=== PATIENT | female | born 2000 | race Caucasian/White ===

== ENCOUNTER 2021-06-05 18:51 | Observation (INO) | payer OTHER, MEDICAID, SELFPAY ==
[2021-06-05] VITALS (14 sets, daily range): BP systolic 98–124; BP diastolic 54–76; PULSE 95–112; RESP 11–24; TEMP 38.1–39.6; O2SAT 97–100
--- NOTE | 2021-06-05 | DI.NM.S_ITS ---
PROCEDURE: NM HIDA NO EJECTION FRACTION RADIOPHARMACEUTICAL: 5.1 mCi Tc-99m mebrofenin IV. INDICATIONS: Rule out acute cholecystitis TECHNIQUE: Following intravenous administration of Tc-99m mebrofenin, sequential anterior abdominal images were obtained through at least 60 minutes. COMPARISON: None. FINDINGS: There is normal tracer uptake and excretion by the liver. There is normal visualization of intrahepatic ducts, common bile duct, and the gallbladder. There is normal tracer excretion into duodenum. IMPRESSION: Negative for acute cholecystitis. Dictated by: Alvaro Anaya M.D. on 06/06/2021 at 17:37 Approved by: Alvaro Anaya M.D. on 06/06/2021 at 17:38
--- NOTE | 2021-06-05 19:30 | DI.US.S_ITS ---
PROCEDURE: US ABDOMEN LIMITED INDICATIONS: RIGHT UPPER QUADRANT PAIN TECHNIQUE: Real-time focused scanning was performed of the abdomen, with image documentation. COMPARISON: None. FINDINGS: Liver is within normal limits. No focal mass. Gallbladder was within normal in appearance. There is a positive sonographic [place] sign. No gallbladder wall thickening. IMPRESSION: 1. Patient demonstrates pain overlying the gallbladder but there is no sonographic evidence of cholecystitis. Dictated by: Amber Castillo M.D. on 06/05/2021 at 19:57 Approved by: Amber Castillo M.D. on 06/05/2021 at 19:58
--- NOTE | 2021-06-05 19:30 | ED_ITS ---
HPI - Abdominal Pain General Chief Complaint: Abdominal Pain Stated Complaint: RIGHT SIDE LOWER PAIN FEVER Time Seen by Provider: 06/05/21 19:09 Source: patient Mode of arrival: Family Vehicle Limitations: no limitations History of Present Illness HPI narrative: Patient is a 21-year-old healthy female who presents with 4 days of right upper quadrant pain. She thinks is been off and on however more consistent over the last day or so. She has had body aches and fever and currently has 102 fever. She has been nauseous and decreased appetite. She has some mild right flank pain as well but is pain is mostly localized in her right upper quadrant. She has no painful or frequent urination. She is quite anxious and nervous. She has had a few episodes of diarrhea. Related Data Allergies Allergy/AdvReac Type Severity Reaction Status Date / Time lidocaine Allergy Intermediate Difficulty Verified 06/05/21 19:11 Breathing Review of Systems Review of Systems Narrative: GENERAL: + fever,+ body aches HEENT: Denies sinus pain, ear pain, sore throat, difficulty swallowing, neck pain RESPIRATORY: Denies dyspnea, cough, wheezing, hemoptysis, sputum. CARDIOVASCULAR: Denies chest pain, palpitations, orthopnea, edema GASTROINTESTINAL: See HPI : + mild right flank pain Denies dysuria, frequency, incontinence MUSCULOSKELETAL: Denies weakness, joint pain, or bony pain SKIN: No rash, no erythema, no pruritus NEUROLOGIC: Denies weakness, dizziness, headache, numbness, change in speech, confusion PSYCHIATRIC: No concerning psychosocial issues. 12 point review of systems is negative except for those stated above and HPI Patient History Social History household members: family and friend(s) Smoking Status: Never smoker Smoking Status: Never smoker alcohol intake frequency: holidays/special occasions only Substance Use Type: does not use Exam Initial Vital Signs Initial Vital Signs: Vital Signs Temperature 102.6 F H 06/05/21 19:04 Pulse Rate 110 H 06/05/21 19:04 Respiratory Rate 20 06/05/21 19:04 Blood Pressure 124/75 06/05/21 19:04 Pulse Oximetry 97 06/05/21 19:04 GENERAL: Alert 21-year-old female appears to not feel well HEENT: Head atraumatic,EOMI, pupils reactive, face symmetric, moist mucous membranes CARDIOVASCULAR: Regular rate and rhythm without murmurs, rubs or gallops. RESPIRATORY: Breath sounds equal bilaterally, no wheezes rales or rhonchi. ABDOMEN: Soft, positive [place]'s sign tender right upper quadrant minimal right lower quadrant pain : Very minimal CVA tenderness EXTREMITIES: Normal range of motion, no clubbing or edema. Neurovascularly intact NEUROLOGICAL: Alert and oriented x4.Normal gait and speech. SKIN: Warm, dry, no laceration, no petechiae, no rashes or lesions. 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) Stat Complete Blood Count AUTO DIFF Stat Comprehensive Metabolic Panel Stat Lactate (Lactic Acid) Stat Lipase Stat Test Serum,Qual Stat Procalcitonin Urgent 06/05/21 19:50 CT abdomen pelvis w con Stat 06/05/21 23:30 Education, smoking cessation ONGOING 06/05/21 23:35 Urinalysis and Microscopic Urgent 06/05/21 23:36 Consult to Physician Routine 06/05/21 23:38 Respiratory Panel (Film Array) Stat 06/05/21 23:40 Urine Microscopic Stat 06/06/21 05:00 Basic Metabolic Panel Routine Complete Blood Count AUTO DIFF DAILY 06/07/21 05:00 Complete Blood Count AUTO DIFF DAILY Acetaminophen (Acetaminophen 325 Mg Tablet) 650 mg PO Q6HR PRN PRN Reason: Fever/Mild Pain (1-3) Last Admin: 06/06/21 01:05 Dose: 650 mg Documented by: LAMAR Heparin Sodium (Porcine) (Heparin 5,000 Unit/Ml Vial) 5,000 unit SUBCUT BID CHAY Piperacillin Sod/Tazobactam (Sod 3.375 gm/ Sodium Chloride) 100 mls @ 25 mls/hr IV Q8H CHAY Ketorolac Tromethamine (Ketorolac 30 Mg/Ml Vial) 30 mg IV Q6HR PRN PRN Reason: Pain, Severe (7-10) Stop: 06/10/21 23:34 Last Admin: 06/06/21 01:38 Dose: 30 mg Documented by: LAMAR Naloxone HCl (Naloxone 0.4 Mg/Ml Vial) 0.2 mg IV Q2MIN PRN PRN Reason: Opiate Reversal Ondansetron HCl (Ondansetron 4 Mg Odt) 4 mg PO Q8HR PRN PRN Reason: Nausea And Vomiting Discontinued Medications Acetaminophen (Acetaminophen 325 Mg Tablet) 975 mg PO NOW ONE Stop: 06/05/21 22:31 Last Admin: 06/05/21 22:48 Dose: 975 mg Documented by: JILL Sodium Chloride (Normal Saline 0.9%) 1,000 mls @ 1,000 mls/hr IV BOLUS ONE Stop: 06/05/21 20:29 Last Infusion: 06/05/21 21:26 Dose: 0 mls/hr Documented by: Admin: 06/05/21 19:43 Dose: 1,000 mls/hr Documented by: JILL Piperacillin Sod/Tazobactam (Sod 4.5 gm/ Sodium Chloride) 100 mls @ 200 mls/hr IV NOW ONE Stop: 06/05/21 19:31 Last Infusion: 06/05/21 20:31 Dose: 0 mls/hr Documented by: Admin: 06/05/21 19:45 Dose: 200 mls/hr Documented by: JILL Piperacillin Sod/Tazobactam (Sod 4.5 gm/ Sodium Chloride) 100 mls @ 200 mls/hr IV NOW ONE Stop: 06/05/21 21:09 Last Admin: 06/05/21 23:25 Dose: Not Given Documented by: CASIMIRO Ketorolac Tromethamine (Ketorolac 30 Mg/Ml Vial) 30 mg IV NOW ONE Stop: 06/05/21 19:31 Last Admin: 06/05/21 19:43 Dose: 30 mg Documented by: JILL Ondansetron HCl (Ondansetron 4 Mg/2 Ml Inj) 4 mg IV NOW ONE Stop: 06/05/21 22:52 Last Admin: 06/05/21 23:00 Dose: 4 mg Documented by: CASIMIRO Vital Signs Vital signs: Vital Signs - 8 hr 06/05/21 20:30 06/05/21 21:00 06/05/21 21:40 Temperature Pulse Rate 102 H 95 H 96 H Respiratory Rate 18 17 Blood Pressure 104/57 L Pulse Oximetry 97 99 100 06/05/21 21:41 06/05/21 21:46 06/05/21 22:00 Temperature 102 F H Pulse Rate 97 H 101 H Respiratory Rate 22 15 Blood Pressure 103/65 108/76 Pulse Oximetry 99 100 06/05/21 22:06 06/05/21 22:30 06/05/21 23:00 Temperature 103.2 F H Pulse Rate 100 H 105 H Respiratory Rate 24 21 Blood Pressure 108/58 L 103/57 L Pulse Oximetry 100 99 06/05/21 23:26 Temperature 100.5 F H Pulse Rate Respiratory Rate Blood Pressure Pulse Oximetry MDM - Abdominal Pain Lab Data Result diagrams: 06/05/21 19:30 06/05/21 19:30 Labs: Lab Results 06/05/21 06/05/21 06/05/21 Range/Units 19:30 19:30 19:30 WBC 12.2 H (4.5-11.0) X10^3/uL RBC 4.51 (4.0-5.2) X10^6/uL Hgb 12.8 (12.0-16.0) g/dL Hct 39.4 (36-46) % MCV 87.3 (80-100) fL MCH 28.4 (26-34) PG MCHC 32.6 (30-36) % RDW 13.4 (11.6-14.8) % Plt Count 226 (150-400) X10^3/uL Neut % (Auto) 78.6 H (50-75) % Lymph % (Auto) 8.1 L (25-40) % [place] % (Auto) 12.0 (3-14) % Eos % (Auto) 1.1 L (2-4) % Baso % (Auto) 0.2 (0-2) % Neut # (Auto) 9600 H (9480-3356) /uL Lymph # (Auto) 1000 L (2203-0737) /uL [place] # (Auto) 1500 H (0-900) /uL Eos # (Auto) 100 (0-450) /uL Baso # (Auto) 0 (0-100) /uL Sodium 136 L (137-145) mmol/L Potassium 3.8 (3.4-5.1) mmol/L Chloride 106 (98-107) mmol/L Carbon Dioxide 25 (22-32) mmol/L BUN 8 (7-17) mg/dL Creatinine 0.64 (0.52-1.04) mg/dL Estimated GFR > 60.0 (>60) mL/min BUN/Creatinine Ratio 12.5 (6-22) Glucose 114 H (70-100) mg/dL Lactate (0.7-2.1) mmol/L Calcium 9.1 (8.4-10.2) mg/dL Total Bilirubin 0.7 (0.2-1.3) mg/dL AST 28 (14-36) IU/L ALT 19 (<35) IU/L Alkaline Phosphatase 83 (38-126) U/L Total Protein 7.7 (6.3-8.2) g/dL Albumin 4.3 (3.5-5.0) g/dL Globulin 3.4 (1.7-4.1) g/dL Albumin/Globulin Ratio 1.3 (1.0-2.8) Lipase 101 (23-300) U/L Procalcitonin (<0.5) ng/mL Serum , Qual Negative (Negative) SARS-CoV-2 (PCR) (Negative) 06/05/21 06/05/21 06/05/21 Range/Units 19:30 19:30 19:30 WBC (4.5-11.0) X10^3/uL RBC (4.0-5.2) X10^6/uL Hgb (12.0-16.0) g/dL Hct (36-46) % MCV (80-100) fL MCH (26-34) PG MCHC (30-36) % RDW (11.6-14.8) % Plt Count (150-400) X10^3/uL Neut % (Auto) (50-75) % Lymph % (Auto) (25-40) % [place] % (Auto) (3-14) % Eos % (Auto) (2-4) % Baso % (Auto) (0-2) % Neut # (Auto) (9973-9213) /uL Lymph # (Auto) (1340-1868) /uL [place] # (Auto) (0-900) /uL Eos # (Auto) (0-450) /uL Baso # (Auto) (0-100) /uL Sodium (137-145) mmol/L Potassium (3.4-5.1) mmol/L Chloride (98-107) mmol/L Carbon Dioxide (22-32) mmol/L BUN (7-17) mg/dL Creatinine (0.52-1.04) mg/dL Estimated GFR (>60) mL/min BUN/Creatinine Ratio (6-22) Glucose (70-100) mg/dL Lactate 1.2 (0.7-2.1) mmol/L Calcium (8.4-10.2) mg/dL Total Bilirubin (0.2-1.3) mg/dL AST (14-36) IU/L ALT (<35) IU/L Alkaline Phosphatase (38-126) U/L Total Protein (6.3-8.2) g/dL Albumin (3.5-5.0) g/dL Globulin (1.7-4.1) g/dL Albumin/Globulin Ratio (1.0-2.8) Lipase (23-300) U/L Procalcitonin 2.48 H (<0.5) ng/mL Serum , Qual (Negative) SARS-CoV-2 (PCR) Negative (Negative) Point of care testing: Point of Care Testing Test Results Negative Urine Dip Bedside Urine Glucose Negative Bedside Urine Bilirubin - Negative Bedside Urine Ketone - Negative Urine Specific [place] 1.015 Bedside Urine Occult Blood - Negative Bedside Urine pH 6 Bedside Urine Protein - Negative Bedside Urine Urobilinogen - Negative Bedside Urine Nitrite - Negative Bedside Urine Leukocytes - Negative Esterase Imaging Data US - abdomen: Radiologist's Impression: PROCEDURE: US ABDOMEN LIMITED ? INDICATIONS:? RIGHT UPPER QUADRANT PAIN ? TECHNIQUE:? Real-time focused scanning was performed of the abdomen, with image documentation.? ? COMPARISON:? None. ? FINDINGS:? Liver is within normal limits.? No focal mass.? Gallbladder was within normal in appearance.? There is a positive sonographic [place] sign.? No gallbladder wall thickening. ? IMPRESSION:? 1. Patient demonstrates pain overlying the gallbladder but there is no sonographic evidence of cholecystitis.? ? ? Dictated by: Amber Castillo M.D. on 06/05/2021 at 19:57 ? ? CT scan - abdomen/pelvis: Radiologist's Impression: PROCEDURE:? CT ABDOMEN PELVIS W CON ? INDICATIONS:? rlq pain ? TECHNIQUE:? After the administration of intravenous contrast, axial sections acquired from the lung bases to the pubic symphysis.? Coronal and sagittal reformats were performed.? For radiation dose reduction, the following was used:? automated exposure control, adjustment of mA and/or kV according to patient size.? ? COMPARISON:? None. ? FINDINGS:? Image quality:? Excellent.? ? Lung bases:? Unremarkable. Heart:? No significant findings. ? ABDOMEN: Liver:? Unremarkable.? ? Gallbladder:? Contracted? ? Biliary ducts:? Unremarkable.? ? Pancreas:? Unremarkable.? ? Spleen:? Unremarkable.? ? Adrenal Glands:? Unremarkable.? ? Kidneys and Ureters:? Unremarkable.? ? ? Stomach and Bowel:? Stomach and small bowel are grossly unremarkable.? Normal appendix.? Colon is within normal limits. Peritoneum:? Small amount of free fluid within the pelvis, within physiological limits in a menstruating female.? No free air.? ? Ventral Wall: ? No hernias.? Abdominal Nodes:? No retroperitoneal or mesenteric adenopathy by size criteria.? Vessels:? Aorta and inferior vena cava are normal in size.? ? PELVIS: Pelvic Organs:? Unremarkable.? ? Bladder:? Small amount of gas within the urinary bladder. Pelvic Nodes: No enlarged lymph nodes.? Miscellaneous: No hernias are seen. ? ? ? Bones:? Unremarkable.? IMPRESSION:? 1. Small amount of physiologic free fluid within the pelvis. 2. Normal appendix. 3. Small amount of gas within the urinary bladder, suggestive recent catheterization.? If there is no history of recent catheterization, consider enterovesical fistula.? ? ? Dictated by: Amber Castillo M.D. on 06/05/2021 at 20:48 MDM Narrative Medical decision making narrative: The patient is found to be febrile tachycardic with tenderness in right upper quadrant. Mild leukocytosis of 12 and a normal lactic acid. Ultrasound and CT show a normal gallbladder. CT does suggest possible in tear of vesical fistula and gas in her bladder. She has not been catheterized and has no suprapubic pain or pelvic pain Has no real identifiable source of her fever. sHe denies any vaginal discharge, she is not sexually active. 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 I have benitez ho and spoken with Dr. Menjivar. He is in ED to see and evaluate patient. Recommends admitting to hospitalist for further monitoring. May need HIDA scan for right upper quadrant. Fever initially 102 but increased to 103.2. She was tachycardic. Blood pressure did decrease from 124/75 to systolic of 98. Then came back up into low 100s. She is given fluids but map remains above 65 and sepsis fluids were not ordered. She is given a dose of antibiotics. Unclear what her source is. Blood cultures are pending. Eric NAJERA updated on patient's symptoms test results and accepts patient. Discharge Plan Departure Patient Disposition: Admitted As Inpatient Clinical Impression: Sepsis Qualifiers: Sepsis type: sepsis due to unspecified organism Sepsis acute organ dysfunction status: without acute organ dysfunction Qualified Code(s): A41.9 - Sepsis, unspecified organism Admit Date/Time: 06/06/21 00:03 Admit Provider: Marilu Reyes
[2021-06-05] MEDS: KETOROLAC 30 MG/ML VIAL IV (19:43)
[2021-06-05] MEDS: SODIUM CHLORIDE 0.9% 1,000 ML 1000 ML IV (19:43)
[2021-06-05] MEDS: PIPERACILLIN/TAZO 4.5 GM in SODIUM CHLORIDE 0.9% 100 ML 200 ML IV (19:45)
--- NOTE | 2021-06-05 19:50 | DI.CT.S_ITS ---
PROCEDURE: CT ABDOMEN PELVIS W CON INDICATIONS: rlq pain TECHNIQUE: After the administration of intravenous contrast, axial sections acquired from the lung bases to the pubic symphysis. Coronal and sagittal reformats were performed. For radiation dose reduction, the following was used: automated exposure control, adjustment of mA and/or kV according to patient size. COMPARISON: None. FINDINGS: Image quality: Excellent. Lung bases: Unremarkable. Heart: No significant findings. ABDOMEN: Liver: Unremarkable. Gallbladder: Contracted Biliary ducts: Unremarkable. Pancreas: Unremarkable. Spleen: Unremarkable. Adrenal Glands: Unremarkable. Kidneys and Ureters: Unremarkable. Stomach and Bowel: Stomach and small bowel are grossly unremarkable. Normal appendix. Colon is within normal limits. Peritoneum: Small amount of free fluid within the pelvis, within physiological limits in a menstruating female. No free air. Ventral Wall: No hernias. Abdominal Nodes: No retroperitoneal or mesenteric adenopathy by size criteria. Vessels: Aorta and inferior vena cava are normal in size. PELVIS: Pelvic Organs: Unremarkable. Bladder: Small amount of gas within the urinary bladder. Pelvic Nodes: No enlarged lymph nodes. Miscellaneous: No hernias are seen. Bones: Unremarkable. IMPRESSION: 1. Small amount of physiologic free fluid within the pelvis. 2. Normal appendix. 3. Small amount of gas within the urinary bladder, suggestive recent catheterization. If there is no history of recent catheterization, consider enterovesical fistula. Dictated by: Amber Castillo M.D. on 06/05/2021 at 20:48 Approved by: Amber Castillo M.D. on 06/05/2021 at 20:50
[2021-06-05 20:21] LABS: Add Manual Diff / Slide Review NO; Basophils Absolute Auto 0 /uL (0-100); Basophils Percent Auto 0.2 % (0-2); Eosinophils Absolute Auto 100 /uL (0-450); Eosinophils Percent Auto 1.1 % (2-4); Hematocrit 39.4 % (36-46); Hemoglobin 12.8 g/dL (12.0-16.0); Lymphocytes Absolute Auto 1000 /uL (1100-4500); Lymphocytes Percent Auto 8.1 % (25-40); Mean Corpuscular HGB Conc 32.6 % (30-36); Mean Corpuscular Hemoglobin 28.4 PG (26-34); Mean Corpuscular Volume 87.3 fL (80-100); Monocytes Absolute Auto 1500 /uL (0-900); Neutrophils Absolute Auto 9600 /uL (1500-7000); Neutrophils Percent Auto 78.6 % (50-75); Platelet Count 226 X10^3/uL (150-400); Red Blood Cell Count 4.51 X10^6/uL (4.0-5.2); Red Cell Distribution Width 13.4 % (11.6-14.8); White Blood Cell Count 12.2 X10^3/uL (4.5-11.0)
[2021-06-05 20:29] LABS: Alanine Aminotransferase 19 IU/L (<35); Albumin 4.3 g/dL (3.5-5.0); Albumin Globulin Ratio 1.3 (1.0-2.8); Alkaline Phosphatase 83 U/L (38-126); Aspartate Aminotransferase 28 IU/L (14-36); BUN Creatinine Ratio 12.5 (6-22); Bilirubin Total 0.7 mg/dL (0.2-1.3); Blood Urea Nitrogen 8 mg/dL (7-17); Calcium 9.1 mg/dL (8.4-10.2); Carbon Dioxide 25 mmol/L (22-32); Chloride 106 mmol/L (98-107); Estimated Glomerular Filt Rate > 60.0 mL/min (>60); Globulin 3.4 g/dL (1.7-4.1); Glucose 114 mg/dL (70-100); HEMOLYSIS < 15 (0-50); Lipase 101 U/L (23-300); Potassium 3.8 mmol/L (3.4-5.1); Sodium 136 mmol/L (137-145); Total Protein 7.7 g/dL (6.3-8.2)
[2021-06-05 21:03] LABS: Pregnancy Test Serum,Qual Negative (Negative)
[2021-06-05 22:37] LABS: COVID19 - ADMIT (NP swab/PCR) Negative (Negative)
[2021-06-05 22:44] LABS: Lactate (Lactic Acid) 1.2 mmol/L (0.7-2.1)
[2021-06-05] MEDS: ACETAMINOPHEN 325 MG TABLET 975 MG PO (22:48)
[2021-06-05] MEDS: ONDANSETRON 4 MG/2 ML INJ IV (23:00)
--- NOTE | 2021-06-05 23:28 | P.CONS_ITS ---
History of Present Illness Consult details Date Patient Seen: 06/05/21 Time Patient Seen: 23:28 Chief complaint: RIGHT SIDE LOWER PAIN FEVER Narrative: 21 y.o woman presents to the ER with complaint of right sided abdominal pain and nausea x several days. Today her pain became worse primarily in the right upper quadrant and associated fever. No previous similar episodes. Workup from the emergency department was significant for temp 103, HR 115, WBC 12. RUQ ultrasound demonstrates normal gallbladder without stones. CT A/P- small amount of free fluid, normal appendix and small amount of gas within the bladder. She is having bowel movements, recent diarrhea today no blood per rectum or hematemsis. Meds Home Medications and Allergies Allergies Allergy/AdvReac Type Severity Reaction Status Date / Time lidocaine Allergy Intermediate Difficulty Verified 06/05/21 19:11 Breathing Review of Systems Review of Systems ROS: Yes All systems reviewed with the patient and are negative except as otherwise documented Exam Vital Signs (past 8 hours): - 06/05/21 19:04 06/05/21 19:07 06/05/21 19:33 Temperature 102.6 F H 102.6 F H Pulse Rate 110 H 112 H 112 H Respiratory Rate 20 15 11 L Blood Pressure 124/75 124/75 Pulse Oximetry 97 100 100 06/05/21 20:00 06/05/21 20:30 06/05/21 21:00 Temperature Pulse Rate 100 H 102 H 95 H Respiratory Rate 21 18 17 Blood Pressure 98/54 L 104/57 L Pulse Oximetry 97 97 99 06/05/21 21:40 06/05/21 21:41 06/05/21 21:46 Temperature 102 F H Pulse Rate 96 H 97 H Respiratory Rate 22 Blood Pressure 103/65 Pulse Oximetry 100 99 06/05/21 22:00 06/05/21 22:06 06/05/21 22:30 Temperature 103.2 F H Pulse Rate 101 H 100 H Respiratory Rate 15 24 Blood Pressure 108/76 108/58 L Pulse Oximetry 100 100 06/05/21 23:00 06/05/21 23:26 Temperature 100.5 F H Pulse Rate 105 H Respiratory Rate 21 Blood Pressure 103/57 L Pulse Oximetry 99 Oxygen Delivery Method Room Air Narrative Exam Narrative: Constitutional-She is oriented to person, place and time. No apparent distress Cardiovascular- regular rate, no peripheral edema Pulmonary-unlabored respiratory effort, no audible wheezing Abdominal-tender no peritonitis right upper quadrant nondistended Musculoskeletal-no cyanosis or clubbing Neurological-nonfocal, normal strength throughout, normal gait. Skin-warm and dry Objective Labs Result Diagrams: 06/05/21 19:30 06/05/21 19:30 Labs: Laboratory Results - last 24 hr 06/05/21 06/05/21 06/05/21 19:30 19:30 19:30 WBC 12.2 H RBC 4.51 Hgb 12.8 Hct 39.4 MCV 87.3 MCH 28.4 MCHC 32.6 RDW 13.4 Plt Count 226 Neut % (Auto) 78.6 H Lymph % (Auto) 8.1 L [place] % (Auto) 12.0 Eos % (Auto) 1.1 L Baso % (Auto) 0.2 Neut # (Auto) 9600 H Lymph # (Auto) 1000 L [place] # (Auto) 1500 H Eos # (Auto) 100 Baso # (Auto) 0 Sodium 136 L Potassium 3.8 Chloride 106 Carbon Dioxide 25 BUN 8 Creatinine 0.64 Estimated GFR > 60.0 BUN/Creatinine Ratio 12.5 Glucose 114 H Lactate Calcium 9.1 Total Bilirubin 0.7 AST 28 ALT 19 Alkaline Phosphatase 83 Total Protein 7.7 Albumin 4.3 Globulin 3.4 Albumin/Globulin Ratio 1.3 Lipase 101 Serum , Qual Negative SARS-CoV-2 (PCR) 06/05/21 06/05/21 19:30 19:30 WBC RBC Hgb Hct MCV MCH MCHC RDW Plt Count Neut % (Auto) Lymph % (Auto) [place] % (Auto) Eos % (Auto) Baso % (Auto) Neut # (Auto) Lymph # (Auto) [place] # (Auto) Eos # (Auto) Baso # (Auto) Sodium Potassium Chloride Carbon Dioxide BUN Creatinine Estimated GFR BUN/Creatinine Ratio Glucose Lactate 1.2 Calcium Total Bilirubin AST ALT Alkaline Phosphatase Total Protein Albumin Globulin Albumin/Globulin Ratio Lipase Serum , Qual SARS-CoV-2 (PCR) Negative [facility] Tobacco & Substance Use Smoking Status: Never smoker Assessment & Plan Assessment & Plan narrative: 21-year-old female admitted to the hospital for acute abdominal pain and fever of unknown etiology. Personally reviewed her ultrasound of the abdomen as well as the CT abdomen pelvis. Overall the imaging is unremarkable. No free air, small amount of physiological fluid, no bowel obstruction, masses hernia.. Gallbladder is unremarkable on both ultrasound and CT, there are no gallstones no wall thickening no pericholecystic fluid. Recommend a HIDA scan for further evaluation of her right upper quadrant pain. In regards to the diarrhea would recommend stool studies for further evaluation. No acute surgical process identified at this time will follow. -Ok for clear liquid diet -Consider antibiotics for presumed infection -HIDA scan -IVF Time Spent With Patient Critical Care time: I spent a total of [] minutes of critical care time on this patient's care today; this time is exclusive of procedural time.
[2021-06-06] VITALS (21 sets, daily range): BP systolic 90–115; BP diastolic 49–71; PULSE 62–105; RESP 16–18; TEMP 36.2–39.1; O2SAT 95–100; BMI 32.4
[2021-06-06 00:37] LABS: Procalcitonin 2.48 ng/mL (<0.5)
[2021-06-06] MEDS: ACETAMINOPHEN 325 MG TABLET 650 MG PO ×3 (01:05→17:40)
[2021-06-06] MEDS: KETOROLAC 30 MG/ML VIAL IV ×4 (01:38→22:38)
--- NOTE | 2021-06-06 03:53 | PM.HP.1 ---
History of Present Illness History of Present Illness Date Patient Seen: 06/05/21 Time Patient Seen: 23:42 Chief complaint: RIGHT SIDE LOWER PAIN FEVER Narrative: Patient is a 21-year-old healthy female who presents with 4 days of right upper quadrant pain, nausea, fever, body aches, diaphoresis, and chills. She thinks is been off and on however more consistent over the last day or so.? She presented with fever of 103, and MADDEN.? She has been nauseous and decreased appetite.? She has some mild right flank pain as well but is pain is mostly localized in her right upper quadrant, and mildly in to lower right.?She is quite anxious and nervous. Patient states the pain has been fairly consistent for the last day or so, does not change in intensity, or with movement or eating. Patient reports that she traveled to [place] where her home is last weekend but has not been exposed to any ill persons. Patient states that approximately 1 year ago she had a lower GI bleed that was found on colonoscopy and had negative upper GI. Patient does have a history of asthma, but has not required medication wall staying in [place]. Patient denies chest pain, shortness of breath, changes in vision, weakness, numbness, tingling, urinary symptoms, bowel changes, hematemesis, hematuria, melena, recent illness injury or trauma. Patient has been vaccinated for COVID-19. Takes no medications. Upon initial exam patient's fever has increased again to 102, she is severely diaphoretic and continues to be quite tender to the upper right and slightly milder lower right abdominal pain, mild right CVA tenderness, negative suprapubic. Patient's initial vitals admit temp 102?, BP 103/57, HR slightly tachycardic 5, RR 21, O2 saturation 99% room air. Patient does have an elevated WBC of 12.2 with neutrophils 9600 chemistry liver panel are all unremarkable, lipase WNL, hCG WNL. Procalcitonin ordered. Abdominal CT demonstrated small amount of physiologic free fluid within the pelvis, with a small amount of gas within the urinary bladder, suggestive recent catheterization.? Ifthere is no history of recent catheterization, consider enterovesical fistula.? Patient's abdominal ultrasound demonstrated no signs of acute cholecystitis. Patient admitted for right upper quadrant abdominal pain, fever with leukocytosis of unknown etiology. Dr. Menjivar kindly consulted on patient's case in ED. Patient History Medical History (Updated 06/06/21 @ 04:39 by JACLYN Toth) Asthma History of lower GI bleeding Surgical History (Updated 06/06/21 @ 04:39 by JACLYN Toth) History of colonoscopy History of esophagogastroduodenoscopy (EGD) Family & Social History Family History Mother Dee Dee's thyroiditis Father Hypertension Social History: household members family,friend(s) Prior Living Arrangements House Safety & Behavioral: Feels Safe in Current Yes Environment Been Physically Hurt or No Threatened By a Person Tobacco & Substance use: Smoking Status Never smoker alcohol intake frequency holiday/special occasion Substance Use Type does not use Meds Home Medications and Allergies Allergies Allergy/AdvReac Type Severity Reaction Status Date / Time lidocaine Allergy Intermediate Difficulty Verified 06/05/21 19:11 Breathing Review of Systems Review of Systems Narrative: All 12 point systems reviewed with the patient and are negative except otherwise documented. Exam Vital Signs (past 8 hours): - 06/05/21 20:00 06/05/21 20:30 06/05/21 21:00 Temperature Pulse Rate 100 H 102 H 95 H Respiratory Rate 21 18 17 Blood Pressure 98/54 L 104/57 L Pulse Oximetry 97 97 99 06/05/21 21:40 06/05/21 21:41 06/05/21 21:46 Temperature 102 F H Pulse Rate 96 H 97 H Respiratory Rate 22 Blood Pressure 103/65 Pulse Oximetry 100 99 06/05/21 22:00 06/05/21 22:06 06/05/21 22:30 Temperature 103.2 F H Pulse Rate 101 H 100 H Respiratory Rate 15 24 Blood Pressure 108/76 108/58 L Pulse Oximetry 100 100 06/05/21 23:00 06/05/21 23:26 06/06/21 00:21 Temperature 100.5 F H 102.4 F H Pulse Rate 105 H 103 H Respiratory Rate 21 18 Blood Pressure 103/57 L 101/49 L Pulse Oximetry 99 96 06/06/21 00:33 06/06/21 01:05 06/06/21 01:06 Temperature 102.4 F H 102.4 F H Pulse Rate Respiratory Rate Blood Pressure Pulse Oximetry 96 06/06/21 01:34 06/06/21 01:35 06/06/21 01:59 Temperature 100.4 F H 100.4 F H 99.5 F Pulse Rate Respiratory Rate Blood Pressure Pulse Oximetry Oxygen Delivery Method Room Air Narrative Exam Narrative: General: Patient is a well-developed, well-nourished obese female, moderately ill appearing, in mild distress at this time. HEENT: Normocephalic, atraumatic, extraocular muscles intact, oral pharynx is clear and mucous membranes are moist. Neck is supple and symmetric, trachea is midline, no adenopathy, no thyroid enlargement, nontender, no masses palpated. Negative for JVD Chest: Normal AP diameter and contour without kyphoscoliosis, no nasal flaring, retractions, or tachypneic labored Lungs: Auscultation of all lung drake are clear without adventitious sounds, wheezes, rhonchi, or rales. Cardio: S1 & S2 with regular rate and rhythm without murmur, rubs, or gallops, no carotid bruit, no cardiac pulsations present. Abdomen: Soft upper right moderate pain, lower right slightly less pain, right mild CVA discomfort, negative for obvious organomegaly, or masses. Bowel sounds are present in all 4 quadrants, positive mild right guarding, no CVA tenderness. Musculoskeletal: Muscle strength and tone are equal within normal limits, no deformity, crepitus, effusions, cyanosis, clubbing or edema present. Full range of motion intact radial and pedal pulses are normal. Skin: Hot grossly diaphoretic and intact without rashes, ulcerations or petechiae. Neuro: Alert and orientated x3, strength is +5/5 in all extremities, sensation to touch intact, no gross deficits noted of cranial nerves. Psych: Patient has a well-kept appearance, appropriate affect, mental status attitude thought context and judgment are appropriate for age. Objective Labs Result Diagrams: 06/05/21 19:30 06/05/21 19:30 Labs: Laboratory Results - last 24 hr 06/05/21 06/05/21 06/05/21 19:30 19:30 19:30 WBC 12.2 H RBC 4.51 Hgb 12.8 Hct 39.4 MCV 87.3 MCH 28.4 MCHC 32.6 RDW 13.4 Plt Count 226 Neut % (Auto) 78.6 H Lymph % (Auto) 8.1 L [place] % (Auto) 12.0 Eos % (Auto) 1.1 L Baso % (Auto) 0.2 Neut # (Auto) 9600 H Lymph # (Auto) 1000 L School[place] # (Auto) 1500 H Eos # (Auto) 100 Baso # (Auto) 0 Sodium 136 L Potassium 3.8 Chloride 106 Carbon Dioxide 25 BUN 8 Creatinine 0.64 Estimated GFR > 60.0 BUN/Creatinine Ratio 12.5 Glucose 114 H Lactate Calcium 9.1 Total Bilirubin 0.7 AST 28 ALT 19 Alkaline Phosphatase 83 Total Protein 7.7 Albumin 4.3 Globulin 3.4 Albumin/Globulin Ratio 1.3 Lipase 101 Procalcitonin Serum , Qual Negative SARS-CoV-2 (PCR) 06/05/21 06/05/21 06/05/21 19:30 19:30 19:30 WBC RBC Hgb Hct MCV MCH MCHC RDW Plt Count Neut % (Auto) Lymph % (Auto) Schoolcraft % (Auto) Eos % (Auto) Baso % (Auto) Neut # (Auto) Lymph # (Auto) Schoolcraft # (Auto) Eos # (Auto) Baso # (Auto) Sodium Potassium Chloride Carbon Dioxide BUN Creatinine Estimated GFR BUN/Creatinine Ratio Glucose Lactate 1.2 Calcium Total Bilirubin AST ALT Alkaline Phosphatase Total Protein Albumin Globulin Albumin/Globulin Ratio Lipase Procalcitonin 2.48 H Serum , Qual SARS-CoV-2 (PCR) Negative Assessment & Plan Assessment & Plan narrative: Patient is a 21-year-old female Yaritza Greene (correct spelling per pt) with a history of lower GI bleed approximately 1 year ago, and asthma. Who presented to the ED this evening with moderate right upper quadrant pain, fever, and leukocytosis of unknown etiology. Dr. Menjivar kindly consulted in the ED and ordered HIDA scan for tomorrow. 1. Right upper quadrant pain, fever with leukocytosis of unknown etiology, acute, present on admission -presenting temp 103, BP 103/57, mildly tachycardic HR 105, 21, O2 saturation 98% on room air, WBC 12.2, neutrophils 9600, procalcitonin 2.48 -LR at 100 cc/hour -Zosyn 3.375 q.8 hours -HIDA Scan Tomorrow -stool cultures, Hemoccult, O&P, H pylori, amylase -ED Consult per Dr. Menjivar :Personally reviewed her ultrasound of the abdomen as well as the CT abdomen pelvis. Overall the imaging is unremarkable. No free air, small amount of physiological fluid, no bowel obstruction, masses hernia.. ? Gallbladder is unremarkable on both ultrasound and CT,? there are no gallstones no wall thickening no pericholecystic fluid.? Recommend a HIDA scan for further evaluation of her right upper quadrant pain.? In regards to the diarrhea would recommend stool studies for further evaluation.? No acute surgical process identified at this time will follow. -Ok for clear liquid diet -Consider antibiotics for presumed infection -HIDA scan -IVF 2. Obesity as evidence by BMI of 32.5, acute on chronic, present on admission -consideration will be given for dietary counseling Code status: Full code Surrogate decision maker: Father Tian Greene COVID PCR: Negative COVID vaccination: Moderna October 2020 DVT/VTE prophylaxis: Heparin 5000 units b.i.d. Disposition: Estimated length of stay less than 2 midnights. I have utilized all available immediate resources to obtain, update, or review the patient's current medications. I confirmed that the patient's advanced care plan is present, Code status is documented and/or surrogate decision maker is listed in the patient's medical record. Time Spent With Patient Critical Care time: I spent a total of [] minutes of critical care time on this patient's care today; this time is exclusive of procedural time.
[2021-06-06] MEDS: PIPERACILLIN/TAZO 3.375 GM in SODIUM CHLORIDE 0.9% 100 ML 25 ML IV ×3 (04:27→20:34)
--- NOTE | 2021-06-06 07:15 | DI.RAD.S_ITS ---
PROCEDURE: XR CHEST 2V INDICATIONS: fever TECHNIQUE: 2 views of the chest were acquired. COMPARISON: None. FINDINGS: Surgical changes and devices: None. Lungs and pleura: Lungs are clear. No pleural effusions or pneumothorax. Mediastinum: Mediastinal contours are normal. Heart size is normal. Bones and chest wall: No suspicious bony abnormalities. Soft tissues appear unremarkable. IMPRESSION: No acute cardiopulmonary abnormality. Dictated by: Ousmane Babb M.D. on 06/06/2021 at 8:15 Approved by: Ousmane Babb M.D. on 06/06/2021 at 8:17
[2021-06-06 07:40] LABS: Appearance Urine UA CLEAR; Bilirubin Urine UA NEGATIVE (NEGATIVE); Color Urine UA YELLOW; Glucose Urine UA NEGATIVE (Negative); Ketones Urine UA NEGATIVE (NEGATIVE); Leukocyte Esterase Urine UA NEGATIVE (NEGATIVE); Nitrite Urine UA NEGATIVE (Negative); Occult Blood Urine UA TRACE-LYSED (Negative); Protein Urine UA NEGATIVE (Negative); Specific Gravity Urine UA <=1.005 (1.000-1.035); Urobilinogen Urine UA 0.2 E.U./dL (0.2)
[2021-06-06 08:02] LABS: pH Urine UA 6.5 (4.5-8.0)
[2021-06-06 08:05] LABS: Bacteria Urine Few (2-10); Culture Indicated Urine Specimen Cultured; RBC Urine 1-5/HPF (0-5/HPF); Squamous Epithelial Cell Urine 1-5 /HPF (0-5/HPF); WBC Urine 5-10/HPF (0-5/HPF)
[2021-06-06 08:47] LABS: Add Manual Diff / Slide Review NO; Basophils Absolute Auto 0 /uL (0-100); Basophils Percent Auto 0.1 % (0-2); Eosinophils Absolute Auto 100 /uL (0-450); Eosinophils Percent Auto 0.7 % (2-4); Hematocrit 36.7 % (36-46); Lymphocytes Absolute Auto 1400 /uL (1100-4500); Lymphocytes Percent Auto 11.8 % (25-40); Mean Corpuscular HGB Conc 32.6 % (30-36); Mean Corpuscular Hemoglobin 28.3 PG (26-34); Mean Corpuscular Volume 86.7 fL (80-100); Monocytes Absolute Auto 1300 /uL (0-900); Monocytes Percent Auto 10.9 % (3-14); Neutrophils Absolute Auto 9200 /uL (1500-7000); Neutrophils Percent Auto 76.5 % (50-75); Platelet Count 184 X10^3/uL (150-400); Red Blood Cell Count 4.24 X10^6/uL (4.0-5.2); Red Cell Distribution Width 13.9 % (11.6-14.8)
[2021-06-06] MEDS: HEPARIN 5,000 UNIT/ML VIAL 5000 UNIT SUBCUT ×2 (08:48→22:50)
[2021-06-06] MEDS: SODIUM CHLORIDE 0.9% 1,000 ML 100 ML IV (08:48)
[2021-06-06 08:53] LABS: BUN Creatinine Ratio 15.5 (6-22); Blood Urea Nitrogen 9 mg/dL (7-17); Calcium 8.4 mg/dL (8.4-10.2); Carbon Dioxide 23 mmol/L (22-32); Chloride 110 mmol/L (98-107); Estimated Glomerular Filt Rate > 60.0 mL/min (>60); Glucose 98 mg/dL (70-100); HEMOLYSIS < 15 (0-50); Potassium 3.7 mmol/L (3.4-5.1); Sodium 138 mmol/L (137-145)
[2021-06-06] MEDS: ONDANSETRON 4 MG ODT PO ×3 (09:37→22:49)
[2021-06-06] MEDS: MORPHINE 2 MG/ML INJ IV (11:01)
[2021-06-06 11:11] LABS: Amylase 48 U/L (30-110)
--- NOTE | 2021-06-06 11:12 | CM.DANOTE ---
Patient is a 21 yo female who was admitted on 06/06/21 for Righ side lower pain, fever. Pt does not show as having insurance and her PCP is not listed. EMR was reviewed. Per MD, pt is COVID vaccinated with a hx of GI bleed lower a year ago and admitted now for right quadrant pain with unknown etiology. Per Surgeon, recommending HIDA scan for today to determine any medical needs and etiology. SW met bedside with pt and her Aunt Eyal and explained role and pt confirms that she has been living on [facility] and working at [employer] and lives with 8 roommates but her primary residence is with her parents in [place] as well as her PCP there. Pt is independent with ADL's at baseline, no DME, drives. Pt's Aunt confirms that she lives near the hospital here in [place] and transport pt at d/c and pt can stay with her as long as needed after discharge pending HIDA scan results and Surgeon recommendations. Admissions counselors have met with pt and pt has insurance through her parents and they are working to confirm insurance through pt's parents in [place]. Plan: SW to follow closely for HIDA scan results towards determining any d/c planning needs and recommendations towards plan of likely d/c to Aunt's house in [place] for assist when medically stable. LEX Velazquez Discharge Planning/Care Management CM Discharge Assessment Start: 06/06/21 11:10 Freq: Status: Active Protocol: Document 06/06/21 11:10 BF (Rec: 06/06/21 11:12 [id number]) Discharge Planning Assessment Assigned Crystal Grower LEX Najera DPOA/Assigned Designee Name none, informally mother Advance Directives? No Advance Directives on File No History Provided By Patient,Medical Record Has Patient been admitted in last 30 No days? Prior Living Arrangements House Household Members family,friend(s) Type of transporation used prior to Drives own vehicle admit Independent with ADL's Yes Is patient alert and oriented? Yes Caregiver for Another No Barriers to Discharge No Discharge Plan Home Transportation Arrangement Aunt Eyal lives locally in [place] and bedside and can provide transport at d/c. Referrals Initiated None needed Additional Comment Pending HIDA scan Whiteboard Updated in Patient Room with Yes name and ext. # of Crystal Grower Review Status In Process Please Provide Date Initial DC 06/06/21 Assessment Was Performed Next Review Type Continued Stay Review
--- NOTE | 2021-06-06 15:41 | PC.NURSE ---
Pt had a temp of, toradol ivp given.
[2021-06-06 17:43] LABS: Adenovirus Not Detected (Not Detect); Bordetella pertussis Not Detected (Not Detecte); Chlamydophila pneumoniae Not Detected (Not Detect); Coronavirus 229E Not Detected (Not Detect); Coronavirus HKU1 Not Detected (Not Detect); Coronavirus NL 63 Not Detected (Not Detect); Coronavirus OC43 Not Detected (Not Detect); Human Metapneumovirus Not Detected (Not Detect); Human Rhinovirus/Enterovirus Not Detected (Not Detect); Influenza A Not Detected (Not Detect); Influenza B Not Detected (Not Detect); Mycoplasma pneumoniae Not Detected (Not Detect); Parainfluenza Virus 1 Not Detected (Not Detect); Parainfluenza Virus 2 Not Detected (Not Detect); Parainfluenza Virus 3 Not Detected (Not Detect); Parainfluenza Virus 4 Not Detected (Not Detect); Respiratory Syncytial Virus Not Detected (Not Detect)
--- NOTE | 2021-06-06 21:45 | PC.NURSE ---
Pt has been febrile on and off throughout the shift. temp was firts 102.4 F and 99.6. pt received toradol IVP and later on tylenol po. Pt was NPO for a HIDA scan. Spoke with ALICIA Reyes and pt is now on a regular diet. Pt was resting around 2100, Heparin held to allow pt to rest. SCd's were also taken off per pt request. At the moment pt's aunt is in the room and her parents are heading here from [place]. Plan is to let the Dad come in here and switch with the Aunt. According DIRECTOR ASSET HIDA scan is negative and they think this might be related to pyelonephritis.
[2021-06-07] VITALS (12 sets, daily range): BP systolic 92–114; BP diastolic 47–71; PULSE 68–89; RESP 16–18; TEMP 36.3–37.1; O2SAT 94–98
[2021-06-07] MEDS: SODIUM CHLORIDE 0.9% 1,000 ML 100 ML IV ×2 (00:03→22:09)
[2021-06-07] MEDS: HYDROCODONE/ACET 10/325 TABLET 1 TAB PO ×4 (00:29→22:09)
--- NOTE | 2021-06-07 01:44 | PC.NURSE ---
Patient is alert and oriented. Breath sounds diminished but CTA with RA sat of 95%. Does have difficulty taking deep breaths as causes increase in abdominal pain. HRR with telemetry reading of SR. Complains of nausea caused by increased abdominal discomfort and had been medicated with Zofran just prior to shift change. Tender in right abdominal quads but worse in upper quadrant. States pain is 6/10 and increases with eating or movement. Had received Toradol prior to shift change so REINALDO Reyes, was informed and order received for Vicodin. Patient received Vicodin and is currently asleep. BT present and abdomen is soft; has had no stools. Denies dysuria, frequency or urgency with urination. Is able to turn self in bed. Up to bathroom with SBA. Had SCD's on at shift change but requested they be removed as states she is unable to sleep with them on; reminded to ankle wave. Fall risk score is moderate; calls for assistance appropriately and dad is at bedside.
[2021-06-07] MEDS: PIPERACILLIN/TAZO 3.375 GM in SODIUM CHLORIDE 0.9% 100 ML 25 ML IV ×3 (03:52→20:16)
[2021-06-07] MEDS: KETOROLAC 30 MG/ML VIAL IV ×3 (06:05→20:17)
[2021-06-07] MEDS: HEPARIN 5,000 UNIT/ML VIAL 5000 UNIT SUBCUT ×2 (09:48→20:16)
--- NOTE | 2021-06-07 09:48 | P.PN_ITS ---
Subjective Subjective Date Patient Seen: 06/07/21 Time Patient Seen: 09:48 Interval history: No major overnight events. Continued abdominal pain primarily RUQ less then yesterday. No nausea. Exam Vital Signs (past 8 hours): - 06/07/21 04:03 06/07/21 08:16 06/07/21 09:43 Temperature 97.8 F 98.5 F Pulse Rate 82 78 Respiratory Rate 18 16 Blood Pressure 99/52 L 101/47 L Pulse Oximetry 95 95 95 06/07/21 09:44 Temperature Pulse Rate Respiratory Rate Blood Pressure Pulse Oximetry 95 Oxygen Delivery Method Room Air Oxygen Flow Rate 0 Narrative Exam Narrative: Gen-Adult female alert and oriented Abdomen-Soft, mildly tender RUQ, no peritonitis. Objective Labs Result Diagrams: 06/06/21 07:40 06/06/21 07:40 Labs: Laboratory Results - last 24 hr 06/06/21 06/06/21 07:40 16:06 Amylase 48 Chlamy pneumoniae PCR Not detected Adenovirus (PCR) Not detected B. pertussis DNA (PCR) Not detected B.parapertussis DNA PCR Not Reportable Coronavirus OC43 (PCR) Not detected Coronavirus HKU1 (PCR) Not detected Coronavirus 229E (PCR) Not detected SARS-CoV-2 (PCR) Not Reportable Coronavirus NL63 (PCR) Not detected Human Metapneumovir PCR Not detected Influenza Type A (PCR) Not detected Influenza Type B (PCR) Not detected M. pneumoniae (PCR) Not detected Parainfluenza 1 (PCR) Not detected Parainfluenza 2 (PCR) Not detected Parainfluenza 3 (PCR) Not detected Parainfluenza 4 (PCR) Not detected RSV (PCR) Not detected Entero/Rhino (PCR) Not detected [facility] Medical History (Updated 06/07/21 @ 09:49 by Adin Menjivar MD) Asthma History of lower GI bleeding Surgical History (Updated 06/06/21 @ 04:39 by JACLYN Toth) History of colonoscopy History of esophagogastroduodenoscopy (EGD) Family History Mother Dee Dee's thyroiditis Father Hypertension Social History household members: family and friend(s) Smoking Status: Never smoker Assessment & Plan Assessment and plan (1) Abdominal pain: Status: Acute Assessment & Plan narrative: 21F admitted for abdominal pain and fever of unkn own etiology. Reviewed workup again normal CT A/P, abdominal ultrasound and now HIDA scan. No acute surgical issue identified. Will sign off for now. Please call with questions. Time Spent With Patient Critical Care time: I spent a total of [] minutes of critical care time on this patient's care today; this time is exclusive of procedural time.
--- NOTE | 2021-06-07 15:08 | P.PN_ITS ---
Subjective Subjective Date Patient Seen: 06/07/21 Interval history: 21-year-old female admitted with fevers and right upper quadrant abdominal pain. Her CT, ultrasound and HIDA scan have been unrevealing of gallbladder pathology or other acute etiology of symptoms. Patient complains of persistent right upper quadrant pain. Her fever curve is clearly going in the right direction on IV antibiotic and she has been afebrile today. Exam Vital Signs (past 8 hours): - 06/07/21 08:16 06/07/21 09:43 06/07/21 09:44 Temperature 98.5 F Pulse Rate 78 Respiratory Rate 16 Blood Pressure 101/47 L Pulse Oximetry 95 95 95 06/07/21 11:45 Temperature 98.7 F Pulse Rate 80 Respiratory Rate 16 Blood Pressure 114/71 Pulse Oximetry 97 Oxygen Delivery Method Room Air Oxygen Flow Rate 0 Narrative Exam Narrative: General: Alert, mildly uncomfortable Lungs: Clear to auscultation Abdomen: Tender in right upper quadrant Extremities: No edema Objective Labs Result Diagrams: 06/06/21 07:40 06/06/21 07:40 Labs: Laboratory Results - last 24 hr 06/06/21 16:06 Chlamy pneumoniae PCR Not detected Adenovirus (PCR) Not detected B. pertussis DNA (PCR) Not detected B.parapertussis DNA PCR Not Reportable Coronavirus OC43 (PCR) Not detected Coronavirus HKU1 (PCR) Not detected Coronavirus 229E (PCR) Not detected SARS-CoV-2 (PCR) Not Reportable Coronavirus NL63 (PCR) Not detected Human Metapneumovir PCR Not detected Influenza Type A (PCR) Not detected Influenza Type B (PCR) Not detected M. pneumoniae (PCR) Not detected Parainfluenza 1 (PCR) Not detected Parainfluenza 2 (PCR) Not detected Parainfluenza 3 (PCR) Not detected Parainfluenza 4 (PCR) Not detected RSV (PCR) Not detected Entero/Rhino (PCR) Not detected [facility] Medical History (Updated 06/07/21 @ 09:49 by Adin Menjivar MD) Asthma History of lower GI bleeding Surgical History (Updated 06/06/21 @ 04:39 [facility] History of colonoscopy History of esophagogastroduodenoscopy (EGD) Family History Mother Dee Dee's thyroiditis Father Hypertension Social History household members: family and friend(s) Smoking Status: Never smoker Assessment & Plan Assessment & Plan narrative: 1. Acute abdominal pain and fever -unknown etiology of RUQ pain with unrevealing CT, ultrasound and HIDA scan -UA with few bacteria but urine culture so far negative and patient without CVAT to suggest acute pyelonephritis -serum hCG negative -appreciate Dr. Menjivar surgical consult -differential includes Yvan Sinan Raul syndrome but patient denies pelvic pain or discharge -fever and WBC improving, continue Zosyn, add doxycycline, diet as tolerated -possible discharge home tomorrow on doxy and metronidazole if patient is doing well Time Spent With Patient Critical Care time: I spent a total of [] minutes of critical care time on this patient's care today; this time is exclusive of procedural time.
[2021-06-07 15:09] LABS: Add Manual Diff / Slide Review NO; Basophils Absolute Auto 0 /uL (0-100); Basophils Percent Auto 0.2 % (0-2); Eosinophils Absolute Auto 200 /uL (0-450); Eosinophils Percent Auto 1.5 % (2-4); Hematocrit 36.2 % (36-46); Hemoglobin 11.7 g/dL (12.0-16.0); Lymphocytes Absolute Auto 1300 /uL (1100-4500); Lymphocytes Percent Auto 11.5 % (25-40); Mean Corpuscular HGB Conc 32.2 % (30-36); Mean Corpuscular Hemoglobin 28.4 PG (26-34); Mean Corpuscular Volume 88.2 fL (80-100); Monocytes Absolute Auto 1200 /uL (0-900); Monocytes Percent Auto 11.5 % (3-14); Neutrophils Absolute Auto 8200 /uL (1500-7000); Neutrophils Percent Auto 75.3 % (50-75); Platelet Count 215 X10^3/uL (150-400); Red Cell Distribution Width 13.8 % (11.6-14.8); White Blood Cell Count 10.8 X10^3/uL (4.5-11.0)
--- NOTE | 2021-06-07 15:37 | CM.DPC ---
DCP Cont: Discussed patient during team rounds. She is not yet ready for discharge today, due to some abdominal pain. According to today's progress note, patient is improving, and may likely discharge tomorrow on oral antibiotics. P: DCP to continue to follow. Patient may possibly discharge tomorrow is deemed medically stable on oral antibiotics. Tali Hu RN/Sanitary Plumber
[2021-06-07] MEDS: DOXYCYCLINE 100 MG in SODIUM CHLORIDE 0.9% 100 ML IV (16:18)
[2021-06-08] VITALS (8 sets, daily range): BP systolic 98–102; BP diastolic 54–56; PULSE 73–77; RESP 16; TEMP 36.2–36.6; O2SAT 93–98
[2021-06-08] MEDS: HYDROCODONE/ACET 10/325 TABLET 1 TAB PO ×2 (01:45→06:37)
[2021-06-08] MEDS: KETOROLAC 30 MG/ML VIAL IV ×2 (03:18→10:31)
[2021-06-08] MEDS: DOXYCYCLINE 100 MG in SODIUM CHLORIDE 0.9% 100 ML IV ×2 (03:19→12:13)
[2021-06-08] MEDS: PIPERACILLIN/TAZO 3.375 GM in SODIUM CHLORIDE 0.9% 100 ML 25 ML IV (04:51)
[2021-06-08] MEDS: ONDANSETRON 4 MG ODT PO (06:10)
[2021-06-08] MEDS: ONDANSETRON 4 MG/2 ML INJ IV (07:42)
--- NOTE | 2021-06-08 07:58 | PC.NURSE ---
Assess- Patient is alert and oriented x3, she had a 50cc emesis around 0530 this am and was given oral zofran otc, this held her until around 0730 and patient had a total of 150cc emesis. Got an order for iv zofran and this has been given, patient seem to be feeling better. She is able to get up independently and do her own care. Heart sounds and lung sounds wnl. Patient is napping now and her father is in her room.
[2021-06-08] MEDS: HEPARIN 5,000 UNIT/ML VIAL 5000 UNIT SUBCUT (08:40)
[2021-06-08] MEDS: SODIUM CHLORIDE 0.9% 1,000 ML 100 ML IV (08:40)
--- NOTE | 2021-06-08 15:09 | PM.DS.1 ---
History of Present Illness History of Present Illness Chief complaint: RIGHT SIDE LOWER PAIN FEVER Narrative: 21 y.o woman presents to the ER with complaint of right sided abdominal pain and nausea x several days. Today her pain became worse?primarily in the right upper quadrant?and associated fever.? No previous similar episodes.? Workup from the emergency department was significant for temp 103, HR 115, WBC 12.? RUQ ultrasound demonstrates normal gallbladder without stones.? CT A/P-small amount of free fluid, normal appendix and small amount of gas within the bladder. She is having bowel movements, recent diarrhea today no blood per rectum or hematemsis Discharge Providers Provider Date of admission: 06/06/21 00:03 Discharge Date: 06/08/21 Consults: 06/05/21 23:36 Consult to Physician Routine Comment: Consulting Provider: Adin Menjivar Reason for consultation: possible bladder Fistula Has provider been notified: Yes 06/06/21 04:22 Consult to General Surgery Routine Comment: Consulting Provider: Adin Menjivar Reason for consultation: Rt upper abd pain/leukocytosis/febrile Has provider been notified: Yes Discharge provider: Baljinder Kingston MD Summary Hospital Course Discharge Diagnosis: 1. Acute RUQ abdominal pain and fever of unknown etiology 21-year-old female admitted with fevers and right upper quadrant abdominal pain.? Her CT, ultrasound and HIDA scan have been unrevealing of gallbladder pathology or other acute etiology of symptoms. Dr. Menjivar was consulted for surgery and did not see clear indication of gallstone disease to warrant surgery. Patient was treated with IV antibiotics and analgesics. She defervesced and has been afebrile for the previous 24 hours prior to discharge. Her white blood cell count was initially mildly elevated and normalized on antibiotic. Her abdominal pain is still present but improving and she is tolerating diet. She denied pelvic pain or vaginal discharge but diagnosis of Yvan Sinan Raul was also considered as potential cause of right upper quadrant pain and fever. Her liver function tests were completely normal ruling out acute hepatitis. She is discharged on 1 week course of Cipro and metronidazole as well as small supply of hydrocodone and ondansetron. Status at Discharge Overall status at discharge: patient is progressing back to baseline Time Spent with Patient Time spent: Less than 30 minutes Exam Vital Signs (past 8 hours): - 06/08/21 07:36 06/08/21 08:42 06/08/21 13:09 Temperature 97.1 F L Pulse Rate 73 Respiratory Rate 16 Blood Pressure 102/54 L Pulse Oximetry 93 97 98 06/08/21 13:10 Temperature Pulse Rate Respiratory Rate Blood Pressure Pulse Oximetry 98 Oxygen Delivery Method Room Air Oxygen Flow Rate 0 Narrative Exam Narrative: General: Alert, appears mildly uncomfortable Abdomen: Nondistended, mild tenderness right upper quadrant, no HSM Objective Labs Result Diagrams: 06/07/21 10:31 06/06/21 07:40 Labs: Laboratory Results - last 24 hr 06/07/21 10:31 WBC 10.8 RBC 4.10 Hgb 11.7 L Hct 36.2 MCV 88.2 MCH 28.4 MCHC 32.2 RDW 13.8 Plt Count 215 Neut % (Auto) 75.3 H Lymph % (Auto) 11.5 L Dukes % (Auto) 11.5 Eos % (Auto) 1.5 L Baso % (Auto) 0.2 Neut # (Auto) 8200 H Lymph # (Auto) 1300 Dukes # (Auto) 1200 H Eos # (Auto) 200 Baso # (Auto) 0 PFSH Medical History (Updated 06/07/21 @ 09:49 by Adin Menjivar MD) Asthma History of lower GI bleeding Surgical History (Updated 06/06/21 @ 04:39 [facility] History of colonoscopy History of esophagogastroduodenoscopy (EGD) Family History Mother Dee Dee's thyroiditis Father Hypertension Social History household members: family and friend(s) Smoking Status: Never smoker Discharge Plan Discharge Plan Patient Disposition: Home Provider Discharge Comment: You were treated with IV antibiotics for fever and right upper quadrant pain of undetermined etiology. Finish course of oral antibiotics. Seek medical attention for fever or new or worsening abdominal pain. Discharge orders & Medications Prescriptions: New hydrocodone-acetaminophen 10-325 mg Tablet 1 tab PO Q6H PRN (Reason: Pain, Moderate (4-6)) Qty: 10 RF: 0 ondansetron 4 mg Tablet,Disintegrating 4 mg PO Q8HR PRN (Reason: Nausea And Vomiting) Qty: 10 RF: 0 ciprofloxacin HCl 500 mg tablet 500 mg PO Q12H 7 Days Qty: 14 RF: 0 metronidazole 500 mg tablet 500 mg PO Q8H 7 Days Qty: 21 RF: 0 Continued Adult Multivitamin with Iron 1 tab PO DAILY RF: 0 Diet/Activity/Treatments Diet: Diet as Tolerated Visit Report/Discharge Packet Instructions: Ciprofloxacin, Hydrocodone/Acetaminophen (By mouth) Discharge Data Attending Provider: Marilu Reyes
== END 2021-06-08 13:45 | disposition home or self-care (01) ==
LOC: ED 19:31 → AC 06-06 04:22
PROVIDERS: Admitting Provider Nurse Practitioner Family; Emergency Provider Emergency Medicine; Referring Provider Emergency Medicine; Visit Provider Nurse Practitioner Family
DX: R10.11 Right upper quadrant pain (principal); D72.829 Elevated white blood cell count, unspecified; R50.9 Fever, unspecified; R11.0 Nausea; Z20.822 Contact with and (suspected) exposure to COVID-19
CPT/HCPCS: 36415; 71046; 74177; 76705; 78226; 80048; 80053; 81001; 81003; 81025; 82150; 83605; 83690; 84145; 84703; 85025; 87040; 87086; 87633; 87635; 94760; 96361; 96365; 96375; 99224; 99225; 99284; A9537; C9803; G0378; J1644; J1885; J2270; J2405; J2543; Q9967

== ENCOUNTER → 2023-10-23 16:43 | Outpatient (CLI) | payer OTHER, SELFPAY ==
[2021-06-06 00:38] VITALS: BMI 32.4
[2023-10-23 17:21] LABS: Add Manual Diff / Slide Review NO; Basophils Absolute Auto 100 /uL (0-100); Basophils Percent Auto 0.5 % (0-2); Eosinophils Absolute Auto 400 /uL (0-450); Eosinophils Percent Auto 4.6 % (2-4); Hematocrit 41.4 % (36-46); Hemoglobin 13.7 g/dL (12.0-16.0); Lymphocytes Absolute Auto 2400 /uL (1100-4500); Lymphocytes Percent Auto 26.7 % (25-40); Mean Corpuscular HGB Conc 33.1 % (30-36); Mean Corpuscular Hemoglobin 28.1 PG (26-34); Mean Corpuscular Volume 84.8 fL (80-100); Monocytes Absolute Auto 800 /uL (0-900); Neutrophils Absolute Auto 5400 /uL (1500-7000); Neutrophils Percent Auto 59.2 % (50-75); Platelet Count 305 X10^3/uL (150-400); Red Blood Cell Count 4.88 X10^6/uL (4.0-5.2); Red Cell Distribution Width 13.9 % (11.6-14.8); White Blood Cell Count 9.2 X10^3/uL (4.5-11.0)
[2023-10-23 17:26] LABS: Hemoglobin A1C% w Est Avg Glu 5.1 % (4.0-6.0)
[2023-10-23 17:58] LABS: Follicle Stimulating Hormone 5.19 mIU/mL; Luteinizing Hormone 7.45 mIU/mL; Vitamin D 25 Hydroxy (D3) 33.5 ng/mL (30.0-100.0)
[2023-10-23 18:04] LABS: Alanine Aminotransferase 25 IU/L (<35); Albumin 4.7 g/dL (3.5-5.0); Albumin Globulin Ratio 1.2 (1.0-2.8); Alkaline Phosphatase 96 U/L (38-126); Aspartate Aminotransferase 29 IU/L (14-36); BUN Creatinine Ratio 24.2 (6-22); Bilirubin Total 0.5 mg/dL (0.2-1.3); Blood Urea Nitrogen 16 mg/dL (7-17); Calcium 9.4 mg/dL (8.4-10.2); Carbon Dioxide 26 mmol/L (22-32); Chloride 103 mmol/L (98-107); Estimated Glomerular Filt Rate > 60 mL/min (>60); Glucose 87 mg/dL (70-100); HEMOLYSIS < 15 (0-50); Potassium 3.9 mmol/L (3.4-5.1); Sodium 138 mmol/L (137-145); Total Protein 8.7 g/dL (6.3-8.2)
[2023-10-23 18:13] LABS: Erythrocyte Sedimentation Rate 18 MM/HR (0-20)
[2023-10-23 18:16] LABS: Rheumatoid Factor < 8.6 IU/mL (<12.0)
[2023-10-23 18:20] LABS: Prolactin 23.9 ng/mL (3.0-18.6)
[2023-10-23 18:21] LABS: Free T3, Triiodothyronine Free 3.75 pg/mL (2.77-5.27); Free T4, Direct Thyroxine 0.82 ng/dL (0.78-2.19)
[2023-10-23 18:35] LABS: Thyroid Stimulating Hormone 1.17 uIU/mL (0.47-4.68)
[2023-10-23 18:53] LABS: Vitamin B12 620 pg/mL (239-931)
[2023-10-25 06:54] LABS: Thyroid Peroxidase Antibodies 55 IU/mL (0-34)
[2023-10-25 19:08] LABS: CCP Antibodies IgG/IgA 5 units (0-19)
[2023-10-26 15:08] LABS: Deamidated Gliadin Ab IgA 5 units (0-19); Deamidated Gliadin Ab IgG 2 units (0-19); Immunoglobulin A,Qn 213 mg/dL (87-352); t-Transglutaminase IgA <2 U/mL (0-3)
[2023-10-29 19:53] LABS: ANA Screen, IFA Negative (.)
== END ==
PROVIDERS: PCP Family Medicine; Referring Provider Family Medicine; Visit Provider Family Medicine
DX: R53.83 Other fatigue (principal); M25.50 Pain in unspecified joint
CPT/HCPCS: 36415; 80053; 82306; 82607; 82784; 83001; 83002; 83036; 83516; 84146; 84439; 84443; 84481; 85025; 85651; 86038; 86200; 86376; 86430

== ENCOUNTER → 2023-11-07 06:47 | Outpatient (CLI) | payer OTHER, SELFPAY ==
[2021-06-06 00:38] VITALS: BMI 32.4
--- NOTE | 2023-11-07 06:47 | DI.US.S_ITS ---
PROCEDURE: US THYROID INDICATIONS: fatigue, joint pain TECHNIQUE: Real-time scanning was performed of the thyroid gland, with image documentation. COMPARISON: None. FINDINGS: Right: Thyroid lobe measures 5 x 1.8 x 2 cm, and is mildly heterogeneous in echotexture. Left: Thyroid lobe measures 4.9 x 1.8 x 2.1 cm, and is mildly heterogeneous in echotexture. Isthmus: 0.7 cm thick. Left inferior thyroid nodule measures 2 x 1.3 x 1.3 centimeters. It is mixed solid cystic. Echotexture is hypoechoic. Margins are smooth. No echogenic foci. TR 3. IMPRESSION: Thyroid is mildly heterogeneous. Consider correlation with thyroid function tests and nuclear medicine study if indicated. Left inferior thyroid nodule measures up to 2 centimeters, TR 3, mildly suspicious. Consider follow-up. ACR TI-RADS definitions and recommendations: TI-RADS 1 (benign): 0 points. FNA not needed. TI-RADS 2 (not suspicious): 2 points. FNA not needed. TI-RADS 3 (mildly suspicious): 3 points. * FNA if 2.5 cm or larger, follow up if 1.5 cm or larger (at 1, 3, and 5 years). TI-RADS 4 (moderately suspicious): 4-6 points. * FNA if 1.5 cm or larger, follow up if 1 cm or larger (at 1, 2, 3, and 5 years). TI-RADS 5 (highly suspicious): 7 points or more. * FNA if 1 cm or larger, follow up if 0.5 cm or larger (every year for 5 years). Dictated by: Archie Ramírez M.D. on 11/07/2023 at 9:20 Approved by: Archie Ramírez M.D. on 11/07/2023 at 9:23
== END ==
LOC: US 06:47
PROVIDERS: PCP Family Medicine; Referring Provider Family Medicine; Visit Provider Family Medicine
DX: E04.1 Nontoxic single thyroid nodule (principal); R53.83 Other fatigue; M25.50 Pain in unspecified joint
CPT/HCPCS: 76536

== ENCOUNTER → 2023-11-09 16:50 | Outpatient (CLI) | payer OTHER, SELFPAY ==
[2021-06-06 00:38] VITALS: BMI 32.4
--- NOTE | 2023-11-09 16:53 | DI.MRI.S_ITS ---
PROCEDURE: MR HEAD/BRAIN WO/W CON INDICATIONS: elevated prolactin TECHNIQUE: Noncontrast axial T1 spin echo, axial T2 fast spin echo, sagittal and axial FLAIR, coronal T2 fast spin echo, axial gradient echo, axial diffusion and ADC through the brain. After the administration of contrast, axial and coronal and sagittal 3D VIBE or T1 spin echo with fat saturation through the brain. In this patient, additional coronal dynamic contrast thin-section imaging was performed through the pituitary. COMPARISON: None. FINDINGS: Image quality: Excellent. CSF Spaces: Basal cisterns are patent. No extra-axial fluid collections. Ventricles are normal in size and shape. Pituitary: The pituitary gland demonstrates normal signal and bulk. On the postcontrast imaging, no masses or abnormally enhancing areas are seen. The pituitary stalk and infundibulum have an unremarkable appearance. A normal appearing pituitary bright spot is seen posteriorly on the precontrast sagittal T1-weighted images. The optic chiasm and the ventral forebrain have an unremarkable appearance. Brain: No midline shift. No intracranial bleeds or masses. No abnormal intracranial enhancement. The brainstem appears normal. Diffusion-weighted images demonstrate no acute infarct. No chronic ischemic insults. Normal intravascular flow voids are present. Skull and face: Calvarial marrow is normal in signal. Orbits appear normal. Sinuses: Sinuses and mastoids appear clear. IMPRESSION: Normal pituitary, without a cause of elevated prolactin seen. Dictated by: Rubens Navarro M.D. on 11/09/2023 at 18:38 Approved by: Rubens Navarro M.D. on 11/09/2023 at 18:39
== END ==
PROVIDERS: PCP Family Medicine; Referring Provider Family Medicine; Visit Provider Family Medicine
DX: R79.89 Other specified abnormal findings of blood chemistry (principal)
CPT/HCPCS: 70553; A9579